=== PATIENT | male | born 1985 | race Caucasian/White ===

== ENCOUNTER 2017-05-27 23:07 | Emergency (ER) | payer SELFPAY ==
--- NOTE | ~2017-05-27 | ER ---
PATIENT'S NAME: RICHIE ISABEL [facility] AGE: 31 Y [address] ROOM: [place] [address] LOCATION: ED ADMIT DATE: 05/27/2017 ER/Outpatient Report DISCHARGE DATE: 05/28/2017 FAMILY PHYSICIAN: PHYSICIAN, NO ATTENDING PHYSICIAN: Dallas Parsons Time of Arrival: 2308 hours. Time of Evaluation: 2308 hours. CHIEF COMPLAINT: Left-sided chest pain. HISTORY OF PRESENT ILLNESS: The patient states that since yesterday evening, he has been having left-sided chest pain that radiates to his upper back. He denies ever having this similar pain before. He describes the pain as sharp and worse with lying flat and breathing, and pain with moving of his left arm. He currently rates his pain a 6/10 in severity. He denies any recent illness or trauma. He denies any family history of heart issues. He states his mother has had blood clots since she was 30. Associated symptoms include shortness of breath. He denies pain into his left arm or jaw. He denies having a headache or vision issues or abdominal pain. PAST MEDICAL HISTORY: Hypertension. SOCIAL HISTORY: He states he has been smoking half a pack a day for the last 10 years. Denies chewing tobacco, drugs, or alcohol. MEDICATIONS: None. ALLERGIES: PENICILLIN. REVIEW OF SYSTEMS: All systems were reviewed by me and were negative with the exception of those stated in the HPI. PHYSICAL EXAMINATION: VITAL SIGNS: The patient's weight 123 kilos, blood pressure 160/90, pulse 82, respiratory rate 16, temperature 97.2, and saturating 100% on room air. [place] Coma Scale is 15. GENERAL: The patient is alert and oriented x3. Does not appear to be in any PATIENT'S NAME: RICHIE ISABEL [facility] AGE: 31 Y [address] ROOM: [place] [address] LOCATION: ED ADMIT DATE: 05/27/2017 ER/Outpatient Report DISCHARGE DATE: 05/28/2017 FAMILY PHYSICIAN: PHYSICIAN, NO ATTENDING PHYSICIAN: Dallas Parsons distress. HEENT: His pupils are equal and reactive to light. Extraocular movements are intact. CHEST: Good air entry bilaterally. No wheezes appreciated. He does have some tenderness to palpation of his left chest, however, he states the pain feels different than the pain he is currently here for. CARDIOVASCULAR: His heart is regular in rate and rhythm. No murmurs are appreciated. BACK: The patient has tenderness to palpation on right paraspinal muscles at about the lower thoracic level. EXTREMITIES: He is able to move all extremities spontaneously and 5/5 strength. LABORATORY DATA AND X-RAYS: A CBC was done that was normal. Coag studies were also normal. ESR was normal. A lipase was done that was also normal. CMS was done that was only remarkable for a mildly elevated glucose at 106, calcium at that time a bit low at 8.3, and anion gap of 8.7. A magnesium was normal. A CPK was normal. CK-MB was normal. Troponin was negative. CRP was normal. A ProBNP was also normal. A D-dimer was normal. An EKG was performed that was in sinus rhythm with a rate of 72, normal axis, normal intervals, no ST segment changes or T- wave inversions. A chest x-ray was done that was normal. IMPRESSION: Costochondritis versus muscle spasm. EMERGENCY DEPARTMENT COURSE: Full history and physical were performed. All cardiac labs were reassuring and D-dimer was negative, which is reassuring against APE. Given that he has reproducible symptoms to palpation of his left chest, likely the patient has component of muscle spasm versus costochondritis. DISPOSITION: The patient was then discharged to home with a prescription for Flexeril to be taken as needed and advised not to drive while taking this medication. He was also given a script for Naproxen to take twice daily, scheduled for 7 days. He is to return to the ED for any worsening symptoms. The patient was also counseled to discontinue smoking and to find and follow up with a primary care provider and get his blood pressure under control. ROSE OROPEZA MD FOR DALLAS PARSONS MD PATIENT'S NAME: RICHIE ISABEL [facility] AGE: 31 Y [address] ROOM: [place] [address] LOCATION: ED ADMIT DATE: 05/27/2017 ER/Outpatient Report DISCHARGE DATE: 05/28/2017 FAMILY PHYSICIAN: RUSTY MARRERO ATTENDING PHYSICIAN: Dallas Parsons KV/sumanl /[id number] d: 05/28/17 0321 t: 06/13/17 1159, OUTPATIENT REPORT
--- NOTE | ~2017-05-27 | ER ---
PATIENT'S NAME: RICHIE ISABEL [facility] AGE: 31 Y [address] ROOM: [place] [id number] LOCATION: [facility] ADMIT DATE: 05/27/2017 ER/Outpatient Report DISCHARGE DATE: FAMILY PHYSICIAN: PHYSICIAN, NO ATTENDING PHYSICIAN: Dallas Ernandez HISTORY OF PRESENT ILLNESS: This patient is a 31-year-old male who presented to the emergency room with left lower anterolateral posterior chest pain. I saw the patient along with Dr. José Antonio Ludwig, Family Practice resident working with me here in the emergency room [facility]. See Dr. Ludwig's dictation in regard to chief complaint, history of present illness, past medical history, physical exam, diagnosis, impression, and treatment plan. I agree with Dr. Ludwig's assessment, diagnosis, and treatment plan. MD NIKA TRUONG/angelica /[id number] d: 05/28/17 0157 t: 05/28/17 1821, OUTPATIENT REPORT
[2017-05-27 23:40] LABS: BASOPHIL # 0.1 K/uL (0.0-0.2); BASOPHIL % 0.6 %; EOSINOPHIL # 0.3 K/uL (0.0-0.5); EOSINOPHIL % 3.5 %; HEMATOCRIT 44.5 % (37.0-53.0); HEMOGLOBIN 15.2 g/dL (12.0-17.0); IMMATURE GRANULOCYTE % 0.2 %; LYMPHOCYTE # 3.2 K/uL (0.8-4.0); LYMPHOCYTE % 38.1 %; MCH 32.3 pg (27.0-34.0); MCHC 34.2 gm/dL (32.0-36.5); MCV 94.5 fl (83.0-98.0); MONOCYTE # 0.8 K/uL (0.0-1.0); MPV 10.2 fl (9.4-12.4); NEUTROPHIL % 47.6 %; NRBC % 0 /100WBC (0-0.00); PLATELET COUNT 228 K/uL (150-450); RBC 4.71 M/uL (4.00-6.00); WBC 8.4 K/uL (4.0-11.0)
[2017-05-27 23:58] LABS: INR - (THERAPEUTIC) 0.92 (0.92-1.07); PROTIME 9.7 SECONDS (9.8-11.4); PTT 26 SECONDS (25-32)
[2017-05-28 00:03] LABS: ALBUMIN 3.7 gm/dL (3.5-5.0); ALK PHOS 91 IU/L (33-138); ALT 32 IU/L (12-78); ANION GAP 8.7 (10.0-19.0); AST 15 IU/L (10-40); BLOOD UREA NITROGEN 12 mg/dL (6-24); CALCIUM 8.3 mg/dL (8.5-10.5); CHLORIDE 109 mMol/L (96-110); CO2 27 mMol/L (22-32); CPK 107 IU/L (35-332); CREATININE 0.9 mg/dL (0.6-1.3); MAGNESIUM 1.9 mg/dL (1.8-2.6); POTASSIUM 3.7 mMol/L (3.7-5.1); SODIUM 141 mMol/L (135-145); TOTAL BILIRUBIN 0.3 mg/dL (0.0-1.5); TOTAL PROTEIN 6.9 g/dL (6.0-8.4)
== END 2017-05-28 00:50 | disposition disaster alternative care site (69) ==
LOC: GMED 23:07
PROVIDERS: Emergency Medicine
DX: R07.89 Other chest pain (principal); I10 Essential (primary) hypertension; F17.210 Nicotine dependence, cigarettes, uncomplicated; Z88.0 Allergy status to penicillin